=== PATIENT | male | born 2000 | race Caucasian/White ===

== ENCOUNTER 2024-03-12 01:08 | Emergency (ER) | payer OTHER ==
[~2024-03-12 01:08] MED LIST: MIDAZOLAM HCL 2 MG/2 ML INJ ONE
[2024-03-12] MEDS ORDERED: FAMOTIDINE 20 MG/2 ML VIAL IV ONE (02:16)
[2024-03-12] MEDS ORDERED: ONDANSETRON 4 MG/2 ML VIAL ONE (02:16)
[2024-03-12] MEDS ORDERED: PANTOPRAZOLE 40 MG INJ ONE (02:16)
[2024-03-12] MEDS ORDERED: MAGNES/ALUMIN/SIMET 30ML UCUP ONE (02:16)
[2024-03-12] MEDS ORDERED: NA CHLORIDE 0.9% 2,000 ML ONE (02:17)
[2024-03-12 02:18] LABS: Absolute Monocytes 0.8 K/uL (0.1-1.3); Absolute Neutrophil 8.7 K/uL (1.8-8.0); Basophils % 0.4 % (0-1.3); Eosinophils % 0.1 % (0-4.4); Hematocrit 40.1 % (39.6-49.0); Hemoglobin 13.9 g/dL (13.6-17.9); Lymphocytes % 9.7 % (15.3-44.8); MCH 29.2 pg (27.0-35.0); MCHC 34.7 g/dL (32.0-36.0); MCV 84.3 fL (80-100); MPV 8.6 fL (7.6-11.3); Monocytes % 7.8 % (3.3-12.3); Nucleated Red Blood Cells % 0.2 % (0-0); Platelets 208 thou/uL (152-406); RBC Red Blood Cell Count 4.76 M/uL (4.33-5.43); Red Cell Distribution Width 13.4 % (12.1-15.2)
[2024-03-12 02:22] LABS: PT Prothrombin Time 14.2 SECONDS (9.4-12.5); Protime INR 1.28
[2024-03-12 02:37] LABS: Albumin 3.5 g/dL (3.4-5.0); Albumin/Globulin Ratio 0.9 (1.1-1.8); Anion Gap 11.6 mEq/L (5.0-15.0); Bilirubin Direct 0.2 mg/dL (0-0.2); Bilirubin Indirect, Calculated 0.3 mg/dL (0.2-0.8); Bilirubin Total 0.5 mg/dL (0.2-1.0); Globulin 3.9 g/dL (2.3-3.5); Potassium 3.6 mEq/L (3.5-5.1); Protein, Total 7.4 g/dL (6.4-8.2); Troponin High Sensitivity 4.4 pg/mL (<58.9)
[2024-03-12 02:48] LABS: SARS-CoV-2 Antigen CONTROL BLUE LINE VIS/BG OK; SARS-CoV-2 Antigen Rapid Res Negative (Negative)
[2024-03-12] MEDS ORDERED: DIPHENHYDRAMINE 50 MG/ML VIAL ONE (03:30)
[2024-03-12] MEDS ORDERED: NA CHLORIDE 0.9% 50 ML ONE (03:30)
[2024-03-12] MEDS ORDERED: METOCLOPRAMIDE 10 MG/2mL INJ ONE (03:30)
[2024-03-12] MEDS ORDERED: KETOROLAC 30 MG/ML INJ ONE (03:30)
--- NOTE | 2024-03-12 05:09 | EDPHYS ---
Physician Documentation [facility] Name: Chad Chandra Age: 23 yrs Sex: Male : 2000 Arrival Date: 03/12/2024 Time: 01:08 Bed 16 Private MD: ED Physician Davonte Wagner HPI: 03/12 01:42 This 23 yrs old Male presents to ER via Ambulatory with complaints of Fever, sp4 Syncope, Epigastric Pain. 05:14 Patient presents with acute onset of fever 104 is reported associated with syncopal sp4 episode in the bathroom. Patient reports longstanding epigastric pain associated with acid reflux.. Historical: - Allergies: 01:37 No Known Allergies; jb4 - PMHx: 01:37 Seizure; jb4 - PSHx: 01:37 None; jb4 - Immunization history:: Adult Immunizations up to date. - Infectious Disease History:: Denies. - Social history:: Smoking status: Reported history of juuling and/or vaping. - Family history:: not pertinent. ROS: 05:14 Constitutional: Positive fever positive feeling unwell positive syncopal episode sp4 positive epigastric pain positive heartburn 05:14 All other systems are negative, Exam: 05:14 Constitutional: This is a well developed, well nourished patient who is awake, alert, sp4 and in no acute distress. Head/Face: Normocephalic, atraumatic. Eyes: Pupils equal round and reactive to light, extra-ocular motions intact. Lids and lashes normal. Conjunctiva and sclera are not injected. Cornea within normal limits. Periorbital areas with no swelling, redness, or edema. ENT: Nares patent. No nasal discharge, no septal abnormalities noted. Tympanic membranes are normal and external auditory canals are clear. Oropharynx with no redness, swelling, or masses, exudates, or evidence of obstruction, uvula midline. Mucous membranes moist. Neck: Trachea midline, no thyromegaly or masses palpated, and no cervical lymphadenopathy. Supple, full range of motion without nuchal rigidity, or vertebral point tenderness. Chest/axilla: Normal chest wall appearance and motion. Nontender with no deformity. No lesions are appreciated. Cardiovascular: Regular rate and rhythm with a normal S1 and S2. No gallops, murmurs, or rubs. Normal PMI, no JVD. No pulse deficits. Respiratory: Lungs have equal breath sounds bilaterally, clear to auscultation and percussion. No rales, rhonchi or wheezes noted. No increased work of breathing, no retractions or nasal flaring. Abdomen/GI: Soft, with normal bowel sounds. No distension or tympany. No guarding or rebound. No evidence of tenderness throughout. Back: No spinal tenderness. No costovertebral tenderness. Skin: Warm, dry with normal turgor. Normal color with no rashes, no lesions, and no evidence of cellulitis. MS/ Extremity: Pulses equal, no cyanosis. Neurovascular intact. Full, normal range of motion. Neuro: Awake and alert, GCS 15, oriented to person, place, time, and situation. Cranial nerves II-XII grossly intact. Motor strength 5/5 in all extremities. Sensory grossly intact. Psych: Awake, alert, with orientation to person, place and time. Behavior, mood, and affect are within normal limits 05:14 ECG was reviewed by the Attending Physician. EKG at 0 153, normal sinus rhythm at a rate of 85, otherwise normal EKG Vital Signs: 01:34 BP 114 / 68; Pulse 80; Resp 16; Temp 101.5(O); Pulse Ox 97% on R/A; Weight 108.86 kg jb4 (R); Height 5 ft. 11 in. (R); Pain 3/10; 03:24 BP 112 / 57; Pulse 78; Temp 99.6(O); Pulse Ox 99% on R/A; MAP 74 mmHg; tm6 04:37 BP 115 / 66; Pulse 66; Pulse Ox 98% on R/A; tm6 05:06 BP 115 / 66; Pulse 66; Resp 18; Temp 98.2(O); Pulse Ox 99% on R/A; Pain 0/10; tm6 01:34 Body Mass Index 33.47 (108.86 kg, 180.34 cm) jb4 01:34 Pain Scale: Adult jb4 05:06 Pain Scale: Adult tm6 [place] Coma Score: 05:14 Eye Response: spontaneous(4). Motor Response: obeys commands(6). Verbal Response: sp4 oriented(5). Total: 15. MDM: 01:43 Patient medically screened. sp4 04:05 ED course: EXAM DESCRIPTION: Chest Single View CLINICAL HISTORY: CHEST PAIN COMPARISON: sp4 None. FINDINGS: Single frontal radiograph view of the chest. Cardiomediastinal silhouette: Normal size and contour. Lungs: No consolidation, pneumothorax, or pleural effusion. Bones: No acute osseous abnormality. Upper abdomen: No abnormality identified. IMPRESSION: 1. No acute pulmonary process identified. . 04:56 ED course: EXAM DESCRIPTION: Chest Single View CLINICAL HISTORY: CHEST PAIN COMPARISON: sp4 None. FINDINGS: Single frontal radiograph view of the chest. Cardiomediastinal silhouette: Normal size and contour. Lungs: No consolidation, pneumothorax, or pleural effusion. Bones: No acute osseous abnormality. Upper abdomen: No abnormality identified. IMPRESSION: 1. No acute pulmonary process identified. . ED course: CT chest / abd - FINDINGS: Chest: Thyroid:No abnormalities of the visualized thyroid. Great Vessels:Great vessels have normal anatomic configuration. Thoracic Aorta:No abnormalities of the thoracic aorta identified. Pulmonary arteries:No central filling defects. Heart:No cardiomegaly, significant pericardial effusion, or coronary artery atherosclerosis Lymph Nodes:No enlarged mediastinal lymph nodes identified. Esophagus:Small hiatal hernia. Other:Mild residual thymus. Lungs:Mild dependent atelectasis. Pleura:No pleural effusion or pneumothorax. Trachea/Airways:No abnormalities of the visualized trachea or airways. Abdomen: Liver: The liver has normal size and density. Gallbladder: No calcified gallstones. Spleen, Pancreas, and Adrenal Glands: The spleen, pancreas, and adrenal glands are unremarkable. Kidneys: No hydronephrosis or obstructing ureteral calculus. 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 Vasculature: The aorta and IVC have normal caliber and position. The portal vein is patent. The proximal visceral and renal arteries are patent. Stomach: Small hiatal hernia. Other: No free intraperitoneal air. No free fluid or lymphadenopathy. Tiny fat-containing umbilical hernia. Pelvis: Bladder: Urinary bladder is unremarkable. Bowel: No dilated loops of large or small bowel. Appendix: Normal appendix. Pelvis:Prostate is not enlarged. Bones: No acute osseous abnormality. . ED course: CT chest /abd impression - 1. No acute abnormality identified in the chest, abdomen, or pelvis. 2. Small hiatal hernia.. 05:14 Differential diagnosis: viral Infection, bacterial infection, URI, UTI, sp4 gastroenteritis. Data reviewed: vital signs, nurses notes, old medical records, lab test result(s), EKG, radiologic studies, CT scan, plain films. Consideration of Admission/Observation Escalation of care including admission/observation considered. ED course: Stable for discharge home. 03/12 01:42 Order name: Basic Metabolic Panel; Complete Time: 03:03/12 01:42 Order name: CBC with Diff; Complete Time: 03:03/12 01:42 Order name: LFT's; Complete Time: 03:03/12 01:42 Order name: Magnesium; Complete Time: 03:03/12 01:42 Order name: NT PRO-BNP; Complete Time: 03:03/12 01:42 Order name: PT-INR; Complete Time: 03:03/12 01:42 Order name: Troponin HS; Complete Time: 03:03/12 01:43 Order name: SARS RAPID; Complete Time: 03:03/12 01:42 Order name: XRAY Chest (1 view) 03/12 02:06 Order name: CT Chest, Abdomen, Pelvis - W/Contrast 03/12 01:42 Order name: Cardiac monitoring; Complete Time: 02:03/12 01:42 Order name: EKG - Nurse/Tech; Complete Time: 02:03/12 01:42 Order name: IV Saline Lock; Complete Time: 02:03/12 01:42 Order name: Labs collected and sent; Complete Time: 02:03/12 01:42 Order name: O2 Per Protocol; Complete Time: 02:03/12 01:42 Order name: O2 Sat Monitoring; Complete Time: 02: EC:14 Rate is 85 beats/min. Rhythm is regular, Normal Sinus Rhythm. QRS [place] is Normal. [place] sp4 interval is normal. QRS interval is normal. QT interval is normal. No Q waves. T waves are Normal. No ST changes noted. Clinical impression: Normal ECG. Interpreted by me. Reviewed by me. Administered Medications: : Drug: NS 0.9% IV 1000 ml IV at 1 bolus Per protocol; 1000 mL bolus Route: IV; Rate: 1 tm6 bolus; Site: left antecubital; 03:21 Follow up: IV Status: Completed infusion; IV Intake: 1000ml tm6 02:27 Drug: Ondansetron IVP 4 mg IVP once; over 2 minutes Route: IVP; Site: left antecubital; tm6 02:28 Drug: Famotidine IVP 20 mg IVP once; dilute with 10 mL 0.9% NaCl; give over 2 minutes tm6 Route: IVP; Site: left antecubital; 02:28 Drug: Pantoprazole IVP 40 mg IVP once Route: IVP; Site: left antecubital; tm6 02:28 Drug: Alum-Mag Hydroxide-Simeth PO Suspension (200 mg-200 mg-20 mg/5 mL) 30 ml PO once tm6 Route: PO; 02:28 Drug: NS 0.9% IV 1000 ml IV at 250 ml/hr continuous Route: IV; Rate: 250 ml/hr; Site: tm6 left antecubital; 03:50 Drug: Ketorolac IVP 30 mg IVP once Route: IVP; Site: left antecubital; tm6 03:50 Drug: metoCLOPramide IVP 10 mg IVP once; over 1 to 2 minutes Route: IVP; Site: left tm6 antecubital; 03:50 Drug: diphenhydrAMINE IVP 25 mg IVP once Route: IVP; Site: left antecubital; tm6 Disposition Summary: 03/12/24 05:09 Discharge Ordered Notes: Location: Home sp4 Problem: new sp4 Symptoms: have improved sp4 Condition: Stable sp4 Diagnosis - Fever, unspecified sp4 - Acid reflux, syncopal episode, acute febrile illness sp4 Followup: sp4 - With: Benny Rawls MD - When: 7 - 10 days - Reason: Recheck today's complaints Discharge Instructions: - Discharge Summary Sheet sp4 - Gastroesophageal Reflux Disease, Adult, [id number] sp4 Forms: - Work release form sp4 - Patient Portal Instructions sp4 Prescriptions: - omeprazole 40 mg Oral capsule,delayed release (e.c.) - dissolve 1 capsule ORAL route every morning; 30 capsule; Refills: 0, Product sp4 Selection Permitted - Ibuprofen 800 mg Oral Tablet - take 1 tablet ORAL route every 8 hours As needed take with food; 30 tablet; sp4 Refills: 0, Product Selection Permitted - Tramadol 50 mg Oral tablet - take 1 tablet ORAL route every 8 hours as needed; 20 tablet; Refills: 0, sp4 Product Selection Permitted - ondansetron 8 mg Oral Tablet,disintegrating - take 1 tablet ORAL route every 8 hours PRN nausea; 30 tablet; Refills: 0, sp4 Product Selection Permitted Signatures: Dispatcher [employer] EDFermin Matta, MARSHA RN jb4 Davonte Wagner MD MD sp4 Wilfredo Davis RN RN tm6 Corrections: (The following items were deleted from the chart) 01:43 01:43 BASIC METABOLIC PANEL+C.LAB.BRZ ordered. EDMS EDMS 01:43 01:43 CBC+H.LAB.BRZ ordered. EDMS EDMS 01:43 01:43 HEPATIC FUNCTION+C.LAB.BRZ ordered. EDMS EDMS 01:43 01:43 MAGNESIUM+C.LAB.BRZ ordered. EDMS EDMS 01:43 01:43 PROBNP+C.LAB.BRZ ordered. EDMS EDMS 01:43 01:43 PROTIME (+INR)+COAG.LAB.BRZ ordered. EDMS EDMS 01:43 01:43 Troponin High Sensitivity+C.LAB.BRZ ordered. EDMS EDMS 01:43 01:43 Chest Single View+RAD.RAD.BRZ ordered. EDMS EDMS 01:43 01:43 SARS-COV-2 Antigen Rapid+I.LAB.BRZ ordered. EDMS EDMS
--- NOTE | 2024-03-12 05:09 | ER ---
Nurse's Notes [facility] Name: Chad Chandra Age: 23 yrs Sex: Male : 2000 Arrival Date: 03/12/2024 Time: 01:08 Bed 16 Private MD: Diagnosis: Fever, unspecified;Acid reflux, syncopal episode, acute febrile illness Presentation: 03/12 01:34 Chief complaint: Patient states: I had a fever at home since Monday and today I jb4 passed out twice before coming. Coronavirus screen: At this time, the client does not indicate any symptoms associated with coronavirus-19. Ebola Screen: No symptoms or risks identified at this time. Initial Sepsis Screen: Does the patient meet any 2 criteria? No. Patient's initial sepsis screen is negative. Does the patient have a suspected source of infection? No. Patient's initial sepsis screen is negative. Risk Assessment: Do you want to hurt yourself or someone else? Patient reports no desire to harm self or others. Onset of symptoms was March 09, 2024. Transition of care: patient was not received from another setting of care. 01:34 Method Of Arrival: Ambulatory jb4 01:34 Acuity: BITA 4 jb4 Historical: - Allergies: 01:37 No Known Allergies; jb4 - PMHx: 01:37 Seizure; jb4 - PSHx: 01:37 None; jb4 - Immunization history:: Adult Immunizations up to date. - Infectious Disease History:: Denies. - Social history:: Smoking status: Reported history of juuling and/or vaping. - Family history:: not pertinent. Screenin:30 [facility] ED Fall Risk Assessment (Adult) History of falling in the last 3 months, tm6 including since admission No falls in past 3 months (0 pts) Confusion or Disorientation No (0 pts) Intoxicated or Sedated No (0 pts) Impaired Gait No (0 pts) Mobility Assist Device Used No (0 pt) Altered Elimination No (0 pt) Score/Fall Risk Level 0 - 2 = Low Risk Oriented to surroundings, Maintained a safe environment, Educated pt \T\ family on fall prevention, incl call for assistance when getting out of bed. Abuse screen: Denies threats or abuse. Denies injuries from another. Nutritional screening: No deficits noted. Tuberculosis screening: No symptoms or risk factors identified. Assessment: 02:30 General: Appears in no apparent distress. Behavior is calm, cooperative. Pain: tm6 Complains of pain in face and epigastric area Pain does not radiate. Pain currently is 5 out of 10 on a pain scale. Quality of pain is described as burning, aching. Neuro: Level of Consciousness is awake, alert, obeys commands, Oriented to person, place, time, situation, Reports headache. Cardiovascular: Patient's skin is warm and dry. Rhythm is sinus rhythm. Respiratory: Airway is patent Respiratory effort is even, unlabored, Respiratory pattern is regular, symmetrical. GI: Abd is soft and non tender X 4 quads. Reports epigastric pain, nausea. : No signs and/or symptoms were reported regarding the genitourinary system. EENT: No signs and/or symptoms were reported regarding the EENT system. Derm: No signs and/or symptoms reported regarding the dermatologic system. Musculoskeletal: No signs and/or symptoms reported regarding the musculoskeletal system. 03:25 Reassessment: Patient appears in no apparent distress at this time. Patient and/or tm6 family updated on plan of care and expected duration. Pain level reassessed. Patient is alert, oriented x 3, equal unlabored respirations, skin warm/dry/pink. patient states head still hurts. 04:38 Reassessment: Patient appears in no apparent distress at this time. tm6 Vital Signs: 01:34 BP 114 / 68; Pulse 80; Resp 16; Temp 101.5(O); Pulse Ox 97% on R/A; Weight 108.86 kg jb4 (R); Height 5 ft. 11 in. (R); Pain 3/10; 03:24 BP 112 / 57; Pulse 78; Temp 99.6(O); Pulse Ox 99% on R/A; MAP 74 mmHg; tm6 04:37 BP 115 / 66; Pulse 66; Pulse Ox 98% on R/A; tm6 05:06 BP 115 / 66; Pulse 66; Resp 18; Temp 98.2(O); Pulse Ox 99% on R/A; Pain 0/10; tm6 01:34 Body Mass Index 33.47 (108.86 kg, 180.34 cm) jb4 01:34 Pain Scale: Adult jb4 05:06 Pain Scale: Adult tm6 [place] Coma Score: 05:14 Eye Response: spontaneous(4). Motor Response: obeys commands(6). Verbal Response: sp4 oriented(5). Total: 15. ED Course: 01:11 Patient arrived in ED. jj6 01:31 Wilfredo Davis, RN is Primary Nurse. tm6 01:37 Triage completed. jb4 01:37 Arm band placed on right wrist. jb4 01:42 Davonte Wagner MD is Attending Physician. sp4 02:11 XRAY Chest (1 view) In Process Unspecified. EDMS 02:12 EKG done, by ED staff, reviewed by Davonte Wagner MD. Inserted saline lock: 20 gauge tm6 in left antecubital area, using aseptic technique. Blood collected. Flushed with 10 mL NS. 02:13 SARS RAPID Sent. tm6 02:13 Basic Metabolic Panel Sent. tm6 02:13 CBC with Diff Sent. tm6 02:13 LFT's Sent. tm6 02:13 Magnesium Sent. tm6 02:13 NT PRO-BNP Sent. tm6 02:13 PT-INR Sent. tm6 02:13 Troponin HS Sent. tm6 02:30 Patient has correct armband on for positive identification. Bed in low position. Call tm6 light in reach. Side rails up X 1. Provided Education on: use of call dominguez. Client placed on continuous cardiac and pulse oximetry monitoring. NIBP monitoring applied. environmental monitoring specialist on. Pulse ox on. NIBP on. Door closed. Noise minimized. Lights dimmed. 03:45 CT Chest, Abdomen, Pelvis - W/Contrast In Process Unspecified. EDMS 05:07 Benny Rawls MD is Referral Physician. sp4 05:09 No provider procedures requiring assistance completed. IV discontinued, intact, tm6 bleeding controlled, No redness/swelling at site. Pressure dressing applied. Administered Medications: 02:27 Drug: NS 0.9% IV 1000 ml IV at 1 bolus Per protocol; 1000 mL bolus Route: IV; Rate: 1 tm6 bolus; Site: left antecubital; 03:21 Follow up: IV Status: Completed infusion; IV Intake: 1000ml tm6 02:27 Drug: Ondansetron IVP 4 mg IVP once; over 2 minutes Route: IVP; Site: left antecubital; tm6 02:28 Drug: Famotidine IVP 20 mg IVP once; dilute with 10 mL 0.9% NaCl; give over 2 minutes tm6 Route: IVP; Site: left antecubital; 02:28 Drug: Pantoprazole IVP 40 mg IVP once Route: IVP; Site: left antecubital; tm6 02:28 Drug: Alum-Mag Hydroxide-Simeth PO Suspension (200 mg-200 mg-20 mg/5 mL) 30 ml PO once tm6 Route: PO; 02:28 Drug: NS 0.9% IV 1000 ml IV at 250 ml/hr continuous Route: IV; Rate: 250 ml/hr; Site: tm6 left antecubital; 03:50 Drug: Ketorolac IVP 30 mg IVP once Route: IVP; Site: left antecubital; tm6 03:50 Drug: metoCLOPramide IVP 10 mg IVP once; over 1 to 2 minutes Route: IVP; Site: left tm6 antecubital; 03:50 Drug: diphenhydrAMINE IVP 25 mg IVP once Route: IVP; Site: left antecubital; tm6 Medication: 02:30 VIS not applicable for this client. tm6 Intake: 03:21 IV: 1000ml; Total: 1000ml. tm6 Outcome: 05:09 Discharge ordered by . sp4 05:09 Discharged to home ambulatory, with family, tm6 05:09 Condition: stable 05:09 Discharge instructions given to patient, family, Instructed on discharge instructions, follow up and referral plans. medication usage, Demonstrated understanding of instructions, follow-up care, medications, Prescriptions given X 4, 05:16 Patient left the ED. tm6 Signatures: Dispatcher [employer] EDFermin Matta RN RN jb4 Ayesha Quigley6 Davonte Wagner MD MD sp4 Wilfredo Davis RN RN tm6 Corrections: (The following items were deleted from the chart) 02:14 02:12 Inserted saline lock: 20 gauge in right antecubital area, using aseptic tm6 technique. Blood collected. Flushed with 10 mL NS tm6
--- NOTE | 2024-03-12 13:06 | EKG ---
Test Date: 2024-03-12 Test Time: 01:53:30 Bed Control Specialist: INRAV MEASUREMENT RESULTS: Intervals: Rate: 85 IA: 166 QRSD: 90 QT: 336 QTc: 399 [place]: P: 26 IA: 166 QRS: 74 T: 3 INTERPRETIVE STATEMENTS: Normal sinus rhythm Normal ECG Compared to ECG 05/26/2005 12:19:00 Sinus arrhythmia no longer present Electronically Signed On 03-12-24 13:05:11 CDT by Ej Colón
--- NOTE | 2024-03-12 13:31 | RAD REPORT ---
EXAM DESCRIPTION: CT - Chest Abdomen Pelvis W Cont - 03/12/2024 6:55 am CLINICAL HISTORY: CHEST PAIN COMPARISON: None Available. TECHNIQUE: CT of the chest, abdomen and pelvis performed following IV administration of iodinated co ntrast. This exam was performed according to our departmental dose-optimization program, which includ es automated exposure control, adjustment of the mA and/or kV according to patient size and/or use of iterative reconstruction technique. FINDINGS: Chest: Thyroid: No abnormalities of the visualized thyroid. Great Vessels: Great vessels have normal anatomic configuration. Thoracic Aorta: No abnormalities of the thoracic aorta identified. Pulmonary arteries: No central filling defects. Heart: No cardiomegaly, significant pericardial effusion, or coronary artery atherosclerosis Lymph Nodes: No enlarged mediastinal lymph nodes identified. Esophagus: Small hiatal hernia. Other: Mild residual thymus. Lungs: Mild dependent atelectasis. Pleura: No pleural effusion or pneumothorax. Trachea/Airways: No abnormalities of the visualized trachea or airways. Abdomen: Liver: The liver has normal size and density. Gallbladder: No calcified gallstones. Spleen, Pancreas, and Adrenal Glands: The spleen, pancreas, and adrenal glands are unremarkable. Kidneys: No hydronephrosis or obstructing ureteral calculus. At least partially duplicated left r enal collecting system. Vasculature: The aorta and IVC have normal caliber and position. The portal vein is patent. The pro ximal visceral and renal arteries are patent. Stomach: Small hiatal hernia. Other: No free intraperitoneal air. No free fluid or lymphadenopathy. Tiny fat-containing umbilic al hernia. Pelvis: Bladder: Urinary bladder is unremarkable. Bowel: No dilated loops of large or small bowel. Appendix: Normal appendix. Pelvis: Prostate is not enlarged. Bones: No acute osseous abnormality. IMPRESSION: 1. No acute abnormality identified in the chest, abdomen, or pelvis. 2. Small hiatal hernia. Electronically signed by: Quinn Lott DO 03/12/2024 04:14 AM CDT RP 4ZDM Due to temporary technical issues with the PACS/Fluency reporting system, reports are being signed by the in house radiologists without review as a courtesy to insure prompt reporting. The interpreting radiologist is fully responsible for the content of the report.
--- NOTE | 2024-03-12 14:24 | RAD REPORT ---
EXAM DESCRIPTION: RAD - Chest Single View - 03/12/2024 2:09 am CLINICAL HISTORY: CHEST PAIN COMPARISON: None. FINDINGS: Single frontal radiograph view of the chest. Cardiomediastinal silhouette: Normal size and contour. Lungs: No consolidation, pneumothorax, or pleural effusion. Bones: No acute osseous abnormality. Upper abdomen: No abnormality identified. IMPRESSION: 1. No acute pulmonary process identified. Electronically signed by: Quinn Lott DO 03/12/2024 02:42 AM CDT 4ZDM Due to temporary technical issues with the PACS/Fluency reporting system, reports are being signed by the in house radiologists without review as a courtesy to insure prompt reporting. The interpreting radiologist is fully responsible for the content of the report.
[2024-03-14 16:26] VITALS: BP 115/66; TEMP 98.2; O2SAT 99
== END 2024-03-12 05:16 | disposition home or self-care (01) ==
LOC: ER 01:08
DX: R55 Syncope and collapse (principal); R50.9 Fever, unspecified; K21.9 Gastro-esophageal reflux disease without esophagitis; F17.290 Nicotine dependence, other tobacco product, uncomplicated; Z11.52 Encounter for screening for COVID-19
CPT/HCPCS: 96361; 93005; 85025; 80048; 36415; 83735; 85610; 80076; 84484; 83880; 71260; 74177; 71045; 96375; 96374; 99285; 87811; Q9967; J2765; J1200; J2470; J2405; J7030